=== PATIENT | male | born 1955 | race Caucasian/White ===

== ENCOUNTER 2023-03-07 04:28 | Day surgery (SDC) | payer OTHER, BC ==
[2023-03-05 13:17] VITALS: BMI 22.2
[2023-03-07 09:58] VITALS: BP 123/47; PULSE 53; RESP 17
[2023-03-07 10:01] VITALS: TEMP 98.1
== END 2023-03-07 10:10 | disposition home or self-care (01) ==
LOC: JASU-ENDO 04:28
PROVIDERS: ATTEND Student in an Organized Health Care Education/Training Program
PROC: 0DJD8ZZ Inspection of Lower Intestinal Tract, Via Natural or Artificial Opening Endoscopic (ICD-10-PCS; principal; 2023-03-07 09:00)
DX: Z12.11 Encounter for screening for malignant neoplasm of colon (principal); K64.8 Other hemorrhoids; K64.4 Residual hemorrhoidal skin tags